=== PATIENT | female | born 1955 | race Caucasian/White ===

== ENCOUNTER → 2016-06-28 | Outpatient (CLI) | payer OTHER ==
[~2016-06-28] MED LIST: ADVAIR 250/28 DISKUS IH; AMITRIPTYLINE H25 M1 PO; ATACAND 16M16 MG/TAB PO; CALAN SR240 MG PO; CEPHALEXIN500 M1 PO; KLONOPIN 0.5MG0.5 MG PO; LEVAQUIN 5500 MG/TAB PO; PRAVACHOL 20MG20 MG PO; PREDNISONE20 MG PO; PRILOTC; PROAIR HFA0.09 MG/AC IH; PROAIR INHALER; PROZAC 10MG10 MG PO; SINGULAIR10 MG PO; VERAPAMIL ER240 MG PO; VERAPAMIL240 MG/TAB PO; XANAX .25M0.25 MG/TA PO; ZOCOR 20MG20 MG PO; ZOCOR20 MG PO
== END ==
LOC: BHSO 09:42
DX: F41.1 Generalized anxiety disorder (principal)

== ENCOUNTER → 2016-10-01 | Outpatient (CLI) | payer OTHER | LOC: BHSO 08:54 | DX: F41.1 Generalized anxiety disorder (principal) ==

== ENCOUNTER → 2017-01-21 | Outpatient (CLI) | payer OTHER | LOC: BHSO 08:45 | DX: F33.1 Major depressive disorder, recurrent, moderate (principal) ==

== ENCOUNTER → 2017-04-23 | Outpatient (CLI) | payer OTHER | LOC: BHSO 10:40 | DX: F41.1 Generalized anxiety disorder (principal) ==

== ENCOUNTER → 2017-09-11 | Outpatient (CLI) | payer OTHER | LOC: BHSO 08:13 | DX: F33.42 Major depressive disorder, recurrent, in full remission (principal) | CPT/HCPCS: G0463 ==

== ENCOUNTER → 2017-09-26 | Outpatient (CLI) | payer OTHER | LOC: COL.RAD 10:06 | DX: N26.1 Atrophy of kidney (terminal) (principal); R31.0 Gross hematuria ==

== ENCOUNTER → 2018-03-13 | Outpatient (CLI) | payer OTHER | LOC: BHSO 09:56 | DX: F33.42 Major depressive disorder, recurrent, in full remission (principal) | CPT/HCPCS: G0463 ==

== ENCOUNTER → 2018-07-11 | Outpatient (CLI) | payer MEDICARE, OTHER | LOC: BHSO 12:57 | DX: F41.1 Generalized anxiety disorder (principal) | CPT/HCPCS: G0463 ==

== ENCOUNTER → 2018-08-12 | Outpatient (CLI) | payer MEDICARE, OTHER | LOC: MC.RAD 15:00 | DX: Z12.31 Encounter for screening mammogram for malignant neoplasm of breast (principal) ==

== ENCOUNTER → 2018-09-10 | Outpatient (CLI) | payer MEDICARE, OTHER | LOC: BHSO 09:02 | DX: F33.41 Major depressive disorder, recurrent, in partial remission (principal) | CPT/HCPCS: G0463 ==

== ENCOUNTER → 2018-11-05 | Outpatient (CLI) | payer MEDICARE, OTHER | LOC: BHSO 09:19 | DX: F33.41 Major depressive disorder, recurrent, in partial remission (principal) | CPT/HCPCS: G0463 ==

== ENCOUNTER → 2019-01-08 | Outpatient (CLI) | payer MEDICARE, OTHER | LOC: BHSO 10:47 | DX: F33.41 Major depressive disorder, recurrent, in partial remission (principal) | CPT/HCPCS: G0463 ==

== ENCOUNTER → 2019-04-07 | Outpatient (CLI) | payer MEDICARE, OTHER | LOC: BHSO 09:40 | DX: F33.42 Major depressive disorder, recurrent, in full remission (principal) | CPT/HCPCS: G0463 ==

== ENCOUNTER → 2019-07-08 | Outpatient (CLI) | payer MEDICARE, OTHER | LOC: BHSO 09:37 | DX: F33.42 Major depressive disorder, recurrent, in full remission (principal) | CPT/HCPCS: G0463 ==